=== PATIENT | female | born 1990 | race Caucasian/White ===

== ENCOUNTER 2024-08-18 11:48 | Emergency (ER) | payer SELFPAY ==
--- NOTE | 2024-08-18 12:11 | ERPHSYRPT ---
- History of Present Illness Time Seen by Provider: 08/18/24 12:11 Source: patient Exam Limitations: no limitations Patient Subjective Stated Complaint: pt here for vaginal bleeding with some cramping, she states is 10 weeks . Triage Nursing Assessment: pt alert, walked in, resp easy, skin w/d/p. no edema noted moves al ext well Allergies/Adverse Reactions: No Known Drug Allergies Allergy (Unverified 08/18/24 12:00) Home Medications: No Reportable Medications [No Reported Medications] 08/18/24 [History] Hx Influenza Vaccination/Date Given: Yes Hx Pneumococcal Vaccination/Date Given: No Travel Risk - International Travel Have you traveled outside of the country in past 3 weeks: No - Emerging Infectious Disease Are you exhibiting symptoms associated with any current EIDs: No - Past Medical History Pertinent Past Medical History: No - Past Surgical History Past Surgical History: Yes Cardiac: Other Other Surgical History: cardiac ablation - Female History Hx Last Menstrual Period: 05/28/2024 Hx Now: Yes Gestational Age: 9 - Social History Smoking Status: Never smoker Exposure to second hand smoke: No Drug Use: none - Social Determinants of Health Will the patient participate in the screening: Declined to provide - Nursing Vital Signs Nursing Vital Signs: Initial Vital Signs Temperature 99.3 F 08/18/24 12:13 Pulse Rate 76 08/18/24 12:13 Respiratory Rate 18 08/18/24 12:13 Blood Pressure 110/67 08/18/24 12:13 O2 Sat by Pulse Oximetry 99 08/18/24 12:13 Pain Scale Pain Intensity 1 Ordered Tests: Active Orders 24 hr Category Date Time Status OB <14 WKS 1ST GESTATION [US] Stat Exams 08/18/24 12:12 Ordered CBC W DIFF Stat Lab 08/18/24 12:23 Completed HCG, Quantitative (Inhouse) Stat Lab 08/18/24 13:29 Ordered UA W/RFX UR CULTURE Stat Lab 08/18/24 12:23 Completed Lab/Rad Data: Laboratory Result Diagrams 08/18/24 12:23 Laboratory Results 08/18/24 08/18/24 08/18/24 Range/Units 12:23 12:23 12:23 WBC 7.6 (3.98-10.04) x10^3/uL RBC 3.95 (3.93-5.22) x10^6/uL Hgb 12.0 (11.2-15.7) g/dL Hct 35.3 (34.1-44.9) % MCV 89.4 (79.4-94.8) fL MCH 30.4 (25.6-32.2) pg MCHC 34.0 (32.2-35.5) g/dL RDW 11.9 (11.7-14.4) % Plt Count 338 (182-369) x10^3/uL MPV 9.1 L (9.4-12.3) fL Gran % 61.3 (34.0-71.1) % Immature Gran % (Auto) 0.3 (0.001-0.429) % Nucleat RBC Rel Count 0.0 (0.00-0.2) % Eos # (Auto) 0.10 (0.04-0.36) x10^3/uL Immature Gran # (Auto) 0.02 (0.001-0.031) x10^3u/L Absolute Lymphs (auto) 2.15 (1.18-3.74) x10^3/uL Absolute Monos (auto) 0.61 (0.24-0.86) x10^3/uL Absolute Nucleated RBC 0.00 (0.00-0.012) x10^3u/L Lymphocytes % 28.5 (19.3-51.7) % Monocytes % 8.1 (4.7-12.5) % Eosinophils % 1.3 (0.7-5.8) % Basophils % 0.5 (0.1-1.2) % Absolute Granulocytes 4.63 (1.56-6.13) x10^3/uL Basophils # 0.04 (0.01-0.08) x10^3/uL Urine Color Yellow (Yellow) Urine Appearance Clear (Clear) Urine pH 7.5 (4.6-8.0) Ur Specific [place] <=1.005 (1.005-1.030) Urine Protein Negative (Negative) Urine Glucose (UA) Negative (Negative) mg/dL Urine Ketones Negative (Negative) Urine Blood Negative (Negative) Urine Nitrite Negative (Negative) Urine Bilirubin Negative (Negative) Urine Urobilinogen 0.2 (0.2) mg/dL Ur Leukocyte Esterase Negative (Negative) U Hyaline Cast (Auto) NONE SEEN (0-2) /LPF Urine Microscopic RBC 0-2 (0-5) /HPF Urine Microscopic WBC 0-2 (0-5) /HPF Ur Epithelial Cells None Seen (None Seen) /HPF Urine Bacteria None Seen (None Seen) /HPF Urine Culture Reflexed NO (NO) ABO Group O Rh Factor POSITIVE Antibody Screen NEGATIVE (NEGATIVE) - Departure Departure Disposition: Home Clinical Impression: Miscarriage at 8 to 28 weeks gestation Condition: Good Critical Care Time: No Instructions: Loss (Miscarriage) ED
[2024-08-18 12:14] VITALS: BP 110/67; PULSE 76; RESP 18; TEMP 99.3; O2SAT 99
[2024-08-18 12:33] LABS: Absolute Neutrophil Ct (ANC) 4.63 x10^3/uL (1.56-6.13); BASOPHIL % 0.5 % (0.1-1.2); Basophil (Absolute #) 0.04 x10^3/uL (0.01-0.08); Eosinophil % 1.3 % (0.7-5.8); Hematocrit 35.3 % (34.1-44.9); IMMATURE GRAN # 0.02 x10^3u/L (0.001-0.031); IMMATURE GRAN % 0.3 % (0.001-0.429); Lymphocyte (Absolute #) 2.15 x10^3/uL (1.18-3.74); Lymphocytes % 28.5 % (19.3-51.7); Mean Cell Volume 89.4 fL (79.4-94.8); Mean Corpuscular Hemoglobin 30.4 pg (25.6-32.2); Mean Platelet Volume 9.1 fL (9.4-12.3); Monocyte (Absolute #) 0.61 x10^3/uL (0.24-0.86); Monocytes % 8.1 % (4.7-12.5); Neutrophil % 61.3 % (34.0-71.1); Platelet Count 338 x10^3/uL (182-369); Red Blood Count 3.95 x10^6/uL (3.93-5.22); Red Cell Distribution Width 11.9 % (11.7-14.4); White Blood Count 7.6 x10^3/uL (3.98-10.04)
[2024-08-18 12:42] LABS: Appearance Clear (Clear); Bacteria None Seen /HPF (None Seen); Bilirubin Negative (Negative); Blood Negative (Negative); Epithelial Cells None Seen /HPF (None Seen); Glucose, Urine Negative (Negative); Hyaline Casts NONE SEEN /LPF (0-2); Ketones Negative (Negative); Leukocyte Esterase Negative (Negative); Nitrite Negative (Negative); Ph 7.5 (4.6-8.0); Protein,Urine Dip Negative (Negative); RBC 0-2 /HPF (0-5); Specific Gravity <=1.005 (1.005-1.030); Urobilinogen 0.2 mg/dL (0.2); WBC 0-2 /HPF (0-5)
[2024-08-18 13:12] LABS: ABO TYPING O; Antibody Screen NEGATIVE (NEGATIVE); RH TYPING POSITIVE
[2024-08-18] MEDS: miSOPROStoL PO ONE (13:45)
--- NOTE | 2024-08-18 19:02 | XRAY ---
Indication: Bleeding. Two-dimensional transvaginal early OB ultrasound performed. Comparison: None Single intrauterine with single pole. Mean crown-rump length is 2.10 cm corresponding to 8 weeks 5 days. No heart rate detected. Cervix is closed. No abnormal subchorionic fluid. Left ovary demonstrates 3.3 cm corpus luteal cyst. Right ovary sonographically unremarkable. No suspicious adnexal mass or free fluid. Impression: Single intrauterine measuring 8 weeks 5 days. No heart tones worrisome for demise. Comment: Preliminary report was given.
== END 2024-08-18 13:50 | disposition home or self-care (01) ==
LOC: ED 11:48
DX: O03.9 Complete or unspecified spontaneous abortion without complication (principal)
CPT/HCPCS: 36415; 76801; 81001; 84702; 85025; 86850; 86900; 86901; 99284